=== PATIENT | female | born 1980 | race Asian ===

== ENCOUNTER 2022-07-16 07:53 | Outpatient (CLI) | payer BC ==
--- NOTE | 2022-07-16 11:14 | XRAY Report ---
PROCEDURE: Lumbar Spine 2 View INDICATIONS: LUMBAR PAIN TECHNIQUE: 3 views of the lumbar spine were acquired. COMPARISON: None. FINDINGS: Bones: 5 [id number] vertebrae are present. 3 mm retrolisthesis L5 on S1. Mild multilevel degene rative changes with disc height loss, endplate spurring, and facet arthropathy. No lumbar vertebral b norma compression fractures visualized. Soft tissues: Overlying bowel gas pattern is normal. No suspicious soft tissue calcifications. IMPRESSION: Mild lumbar spine degenerative changes. Reviewed by: Calvin Kaur MD on 07/16/2022 11:13 AM PDT Approved by: Calvin Kaur MD on 07/16/2022 11:13 AM PDT Station ID: [id number]
== END 2022-07-16 23:59 | disposition home or self-care (01) ==
LOC: DI.N 07:53
PROVIDERS: ATTEND Family Medicine
DX: M47.816 Spondylosis without myelopathy or radiculopathy, lumbar region (principal)